=== PATIENT | male | born 1935 | race Caucasian/White ===

== ENCOUNTER 2016-08-14 08:41 | Emergency (ER) | payer OTHER ==
[~2016-08-14 08:41] MED LIST: ACET500CAP PO; ALLEGRA-D24 HOUR PO; ATEN25 PO; EXELON1 EACH TOP; FLOMAX4 PO; HALF81 PO; LORTAB 5 PO; MIRALAXPKT PO; MOBIC15 MG PO; MULTIPLE VIT PO; NAMENDA10 MG PO; OSTEOBIFLEX; PRILO PO; SEROQUEL50 MG PO; ZANTAC150 MG PO; ZOCOR20 PO
== END 2016-08-14 09:30 | disposition home or self-care (01) ==
LOC: ER 08:41
PROC: 0HQ1XZZ Repair Face Skin, External Approach (ICD-10-PCS; principal; 2016-08-14)
DX: S01.81XA Laceration without foreign body of other part of head, initial encounter (principal); I10 Essential (primary) hypertension; F03.90 Unspecified dementia, unspecified severity, without behavioral disturbance, psychotic disturbance, mood disturbance, and anxiety; I25.10 Atherosclerotic heart disease of native coronary artery without angina pectoris; K21.9 Gastro-esophageal reflux disease without esophagitis; Z96.649 Presence of unspecified artificial hip joint; Z96.619 Presence of unspecified artificial shoulder joint; Z88.0 Allergy status to penicillin; Z87.891 Personal history of nicotine dependence; Z85.9 Personal history of malignant neoplasm, unspecified; W19.XXXA Unspecified fall, initial encounter
CPT/HCPCS: 93005; 99283